=== PATIENT | female | born 1940 ===

== ENCOUNTER 2022-01-03 10:59 | Outpatient (CLI) | payer OTHER | END 2022-01-03 11:03 | disposition home or self-care (01) | LOC: RAD 10:59 | PROVIDERS: ATTEND Orthopaedic Surgery | DX: S52.531A Colles' fracture of right radius, initial encounter for closed fracture (principal) ==

== ENCOUNTER 2022-02-05 13:42 | Outpatient (CLI) | payer OTHER | END 2022-02-05 13:45 | disposition home or self-care (01) | LOC: RAD 13:42 | PROVIDERS: ATTEND Orthopaedic Surgery | DX: S52.531A Colles' fracture of right radius, initial encounter for closed fracture (principal) ==

== ENCOUNTER 2022-05-14 09:55 | Outpatient (CLI) | payer OTHER | END 2022-05-14 10:01 | disposition home or self-care (01) | LOC: LAB 09:55 | PROVIDERS: ATTEND Orthopaedic Surgery | DX: E55.9 Vitamin D deficiency, unspecified (principal); M85.9 Disorder of bone density and structure, unspecified; E56.1 Deficiency of vitamin K; E21.3 Hyperparathyroidism, unspecified; E88.9 Metabolic disorder, unspecified; M81.8 Other osteoporosis without current pathological fracture ==

== ENCOUNTER 2022-08-06 12:00 | Outpatient (CLI) | payer OTHER | END 2022-08-06 12:04 | disposition home or self-care (01) | LOC: RAD 12:00 | PROVIDERS: ATTEND Orthopaedic Surgery | DX: S52.531D Colles' fracture of right radius, subsequent encounter for closed fracture with routine healing (principal); G90.511 Complex regional pain syndrome I of right upper limb ==